=== PATIENT | male | born 1965 | race African-American/Black ===

== ENCOUNTER 2018-03-17 16:14 | Emergency (ER) | payer OTHER ==
[2018-03-17 16:23] VITALS: BP 158/65; PULSE 78; TEMP 98.4; BMI 24.4
--- NOTE | 2018-03-17 16:31 | PDOC ---
History of Present Illness - General History Source: Patient (The patient is a 52 year old male, with no significant PMH, who presents to the emergency department for evaluation of scabies. 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 The patient denies any symptoms at this time. He denies any itching or rash. The patient states on his lower legs he has mosquito bites. ) Exam Limitations: No Limitations <Jg Zaldivar - Last Filed: 03/17/18 17:04> <Efra Blanchard - Last Filed: 03/17/18 17:31> - General Chief Complaint: Scabies Stated Complaint: POSSIBLE EXPOSURE TO SCABIES Time Seen by Provider: 03/17/18 16:21 Past History <Jg Zaldivar - Last Filed: 03/17/18 17:04> - Past Medical History COPD: No Other medical history: PT DENIES - Suicide/Smoking/Psychosocial Hx Smoking History: Never smoked Have you smoked in the past 12 months: Yes Number of Cigarettes Smoked Daily: 20 Information on smoking cessation initiated: Yes Hx Alcohol Use: (social) <Efra Blanchard - Last Filed: 03/17/18 17:31> - Past Medical History Allergies/Adverse Reactions: Allergies Allergy/AdvReac Type Severity Reaction Status Date / Time No Known Allergies Allergy Verified 03/17/18 16:20 Home Medications: Ambulatory Orders Permethrin [Nix Complete] 324.86 ml ASDIR #1 combo..pkg 03/17/18 Review of Systems - Review of Systems Constitutional: No: Chills, Fever, Weakness HEENTM: No: Blurred Vision, Double Vision, Nose Congestion, Throat Pain Respiratory: No: Cough, Shortness of Breath Cardiac (ROS): No: Chest Pain, Lightheadedness, Palpitations, Syncope ABD/GI: No: Constipated, Diarrhea, Nausea, Vomiting : No: Burning, Dysuria, Frequency, Flank Pain, Urgency Musculoskeletal: No: Back Pain, Neck Pain Integumentary: No: Lesions, Rash, Sweating Neurological: No: Headache, Numbness, Tingling, Weakness Psychiatric: No: Anxiety, Depression Endocrine: No: Intolerance to Cold, Intolerance to Heat, Unexplained Weight Gain , Unexplained Weight Loss Hematologic/Lymphatic: No: Anemia, Blood Clots <Jg Zaldivar - Last Filed: 03/17/18 17:04> *Physical Exam - Vital Signs Last Vital Signs Temp Pulse Resp BP Pulse Ox 98.4 F 78 18 158/65 100 03/17/18 16:14 03/17/18 16:14 03/17/18 16:14 03/17/18 16:14 03/17/18 16:14 - Physical Exam General Appearance: Yes: Nourished, Appropriately Dressed. No: Apparent Distress HEENT: positive: RUSS, Normal ENT Inspection, Normal Voice, Symmetrical, TMs Normal, Pharynx Normal Neck: positive: Trachea midline, Supple Respiratory/Chest: positive: Lungs Clear, Normal Breath Sounds. negative: Respiratory Distress Cardiovascular: positive: Regular Rhythm, Regular Rate Gastrointestinal/Abdominal: positive: Normal Bowel Sounds, Soft. negative: Tender, Guarding, Rebound Lymphatic: negative: Adenopathy, Tenderness Musculoskeletal: positive: Normal Inspection. negative: CVA Tenderness Extremity: positive: Normal Inspection, Normal Range of Motion. negative: Tender Integumentary: positive: Normal Color, Dry, Warm, Other (No lesions. ) Neurologic: positive: assistance coordinator II-XII NML intact, Fully Oriented, Alert, Normal Mood/ Affect, Normal Response, Motor Strength 5/5 <Jg Zaldivar - Last Filed: 03/17/18 17:04> - Vital Signs Last Vital Signs Temp Pulse Resp BP Pulse Ox 98.4 F 78 18 158/65 100 03/17/18 16:14 03/17/18 16:14 03/17/18 16:14 03/17/18 16:14 03/17/18 16:14 <[place]wn,Remus S - Last Filed: 03/17/18 17:31> Medical Decision Making - Medical Decision Making 03/17/18 17:06 No skin lesions noted on physical exam. Treatment for potential exposure to scabies. Patient instructed to follow up with primary care provider. <Jg Zaldivar - Last Filed: 03/17/18 17:04> *DC/Admit/Observation/Transfer - Attestations Scribe Attestion: 03/17/18 17:06 Documentation prepared by Jg Zaldivar, acting as medical staff director for Efra Blanchard MD. <Jg Zaldivar - Last Filed: 03/17/18 17:04> - Discharge Dispostion Decision to Admit order: No <Efra Blanchard - Last Filed: 03/17/18 17:31> Diagnosis at time of Disposition: Scabies exposure - Discharge Dispostion Disposition: HOME Condition at time of disposition: Stable - Prescriptions Prescriptions: Permethrin [Nix Complete] 324.86 ml ASDIR #1 combo..pkg - Patient Instructions Printed Discharge Instructions: DI for Scabies Additional Instructions: Although no scabies lesions seen, being exposed to it is safe to use the medication on the skin as directed , to throughly wash the clothes, bedssheet etc
== END 2018-03-17 17:50 | disposition home or self-care (01) ==
LOC: FER 16:14
DX: Z77.9 Other contact with and (suspected) exposures hazardous to health (principal)
CPT/HCPCS: 99282-25